=== PATIENT | male | born 1955 | race Caucasian/White ===

== ENCOUNTER 2024-03-29 07:52 | Emergency (ER) | payer OTHER ==
[~2024-03-29] VITALS: Ht 177.8 cm; Wt 115.6 kg
[2024-03-29 08:12] VITALS: BP 135/73
[2024-03-29] MEDS ORDERED: IBUPROFEN 600 MG/TAB PO ONE (08:20)
[2024-03-29] MEDS ORDERED: traMADol HCL 50 MG/TAB PO ONE (08:20)
[2024-03-29 08:30] VITALS: BP 126/74
[2024-03-29 09:00] VITALS: BP 132/76
[2024-03-29 09:30] VITALS: BP 140/83
[2024-03-29 10:00] VITALS: BP 137/75
[2024-03-29] MEDS ORDERED: TRAMADOL HYDROC50 M1 PO (10:05)
[2024-03-29] MEDS ORDERED: IBUPROFEN600 MG PO (10:05)
[2024-03-29 10:32] VITALS: BP 111/79
== END 2024-03-29 10:33 | disposition home or self-care (01) | DRG 605 ==
LOC: ED 07:52
DX: S80.02XA Contusion of left knee, initial encounter (principal); I10 Essential (primary) hypertension; E11.42 Type 2 diabetes mellitus with diabetic polyneuropathy; V18.0XXA Pedal cycle driver injured in noncollision transport accident in nontraffic accident, initial encounter